=== PATIENT | female | born 1990 | race African-American/Black ===

== ENCOUNTER 2018-08-20 13:48 | Inpatient (IN) ==
[2018-08-20] MEDS ORDERED: LACTATED RINGERS 1,000 ML IV PRN (14:10)
[2018-08-20] MEDS ORDERED: ONDANSETRON 4 MG/2 ML VIAL IV PRN (14:10)
[2018-08-20] MEDS ORDERED: DINOPROSTONE 10 MG VAG.INSERT VAG ONE (14:10)
[2018-08-20] MEDS ORDERED: BUTORPHANOL 2 MG/ML VIAL IV PRN (14:10)
[2018-08-20 14:28] LABS: Basophils % 0.2 % (0.0-0.8); Eosinophils # 0.1 10*3/uL (0.0-0.87); Eosinophils % 0.5 % (0.00-10.9); Hematocrit 34.4 VOL% (35.7-47.0); Hemoglobin 10.3 GM/DL (12.0-16.0); Immature Granulocytes % 0.5 %; Immature Granulocytes Absolute 0.06 #; Lymphocytes # 1.9 10*3/uL (1.4-4.0); Lymphocytes % 16.5 % (21.3-54.2); Mean Corpuscular HGB Conc 29.9 GM/DL (32-36); Mean Corpuscular Volume 80.2 FL (87-102); Mean Platelet Volume 10.2 FL (9.6-12.0); Monocytes % 6.1 % (1.7-12.7); Neutrophils % 76.2 % (38.7-73.9); Platelet Count 172 T/CUMM (130-400); Red Blood Count 4.29 MC/CUMM (3.8-5.5); Red Cell Distribution Width 16.8 % (9.3-17.3); White Blood Count 11.2 T/CUMM (4-12)
[2018-08-20 14:53] LABS: Albumin 2.7 G/DL (3.4-5.0); Bilirubin,Total 0.4 MG/DL (0.2-1.0); Calcium 8.6 MG/DL (8.5-10.1); Osmolality,Calculated 276.5 MOS/KG (273-304); Total Protein 6.9 G/DL (6.4-8.3); Uric Acid 5.2 MG/DL (2.6-6.0)
[2018-08-21] MEDS ORDERED: OXYTOCIN/LR 20 UNIT/1,000 ML BAG IV SCH (03:00)
[2018-08-21] MEDS: LACTATED RINGERS 1,000 ML IV SCH ×2 (03:08→20:30)
[2018-08-21] MEDS ORDERED: CLINDAMYCIN INJ 900 MG in PREMIX 1 EACH IV ONE (06:23)
[2018-08-21] MEDS ORDERED: CITRIC ACID/SODIUM CITRATE 30 ML UDCUP PO ONE (06:23)
[2018-08-21] MEDS ORDERED: FAMOTIDINE 20 MG/2 ML VIAL IV ONE (06:23)
[2018-08-21] MEDS ORDERED: BUPIVACAINE SPINAL 0.75% 2 ML AMP SPINAL ONE (08:02)
[2018-08-21] MEDS ORDERED: MORPHINE 10 MG/10 ML VIAL ONE (10:06)
[2018-08-21] MEDS ORDERED: ONDANSETRON 4 MG/2 ML VIAL ONE (10:06)
[2018-08-21] MEDS ORDERED: PHENYLEPHRINE 1 MG/10 ML SYRINGE IV ONE (10:06)
[2018-08-21 10:30] LABS: Apearance,Urine CLEAR (Clear); Bacteria,Urine Occasional /HPF (Few); Bilirubin,Urine Negative (Negative); Blood, Urine Negative (Negative); Glucose,Urine (UA) Negative (Negative); Ketones,Urine 5 mg/dL (Negative); Mucus,Urine Occasional /LPF (Occasional); Nitrite,Urine Negative (Negative); Protein,Urine Negative; RBC,Urine 1 /HPF (0-4); Squamous Epithelial Cell,Urine Occasional /HPF (0-10); Urine Color Yellow (Yellow); Urine Specific Gravity 1.017 (1.001-1.035); Urine Urobilinogen < 2.0 EU/DL (0.2-1.0); WBC,Urine 1 /HPF (0-6)
[2018-08-21] MEDS ORDERED: SIMETHICONE CHEW 80 MG TABLET PO PRN (16:03)
[2018-08-21] MEDS ORDERED: RHO(D) IMMUNE GLOBULIN 300 MCG SYRINGE IM ONE (16:03)
[2018-08-21] MEDS ORDERED: ONDANSETRON 4 MG/2 ML VIAL IV PRN (16:03)
[2018-08-21] MEDS: KETOROLAC 30 MG/1 ML VIAL IV SCH ×2 (17:40→23:53)
[2018-08-21] MEDS: DOCUSATE SODIUM 100 MG CAPSULE PO SCH (21:43)
[2018-08-22 05:52] LABS: Basophils % 0.1 % (0.0-0.8); Eosinophils # 0.1 10*3/uL (0.0-0.87); Eosinophils % 0.9 % (0.00-10.9); Hematocrit 31.2 VOL% (35.7-47.0); Hemoglobin 9.4 GM/DL (12.0-16.0); Immature Granulocytes % 0.5 %; Immature Granulocytes Absolute 0.05 #; Lymphocytes # 1.8 10*3/uL (1.4-4.0); Lymphocytes % 18.6 % (21.3-54.2); Mean Corpuscular HGB Conc 30.1 GM/DL (32-36); Mean Platelet Volume 11.2 FL (9.6-12.0); Monocytes % 8.3 % (1.7-12.7); Neutrophils % 71.6 % (38.7-73.9); Platelet Count 164 T/CUMM (130-400); White Blood Count 9.7 T/CUMM (4-12)
[2018-08-22] MEDS: KETOROLAC 30 MG/1 ML VIAL IV SCH ×2 (06:23→11:18)
[2018-08-22] MEDS: MULTIVITAMIN (PRENATAL) TABLET PO SCH (08:51)
[2018-08-22] MEDS: MAGNESIUM HYDROXIDE SUSP 30 ML UDCUP PO PRN ×2 (08:53→21:55)
[2018-08-22] MEDS: DOCUSATE SODIUM 100 MG CAPSULE PO SCH ×2 (08:53→21:55)
[2018-08-22] MEDS: IBUPROFEN 800 MG TABLET PO SCH ×2 (10:52→17:39)
[2018-08-22] MEDS ORDERED: ACETAMINOPHEN 500 MG TABLET ONE (15:46)
[2018-08-22] MEDS: ACETAMINOPHEN 500 MG TABLET PO PRN (15:49)
[2018-08-23] MEDS: IBUPROFEN 800 MG TABLET PO SCH ×2 (02:08→10:17)
[2018-08-23] MEDS: ACETAMINOPHEN 500 MG TABLET PO PRN (07:41)
[2018-08-23] MEDS: MULTIVITAMIN (PRENATAL) TABLET PO SCH (08:00)
[2018-08-23] MEDS: DOCUSATE SODIUM 100 MG CAPSULE PO SCH (08:00)
[2018-08-23 08:25] VITALS: BP 132/78
[2018-08-23] MEDS: MAGNESIUM HYDROXIDE SUSP 30 ML UDCUP PO PRN (08:26)
== END 2018-08-23 13:25 | disposition home or self-care (01) | DRG 540 ==
LOC: N.LDOUT 13:48 → N.LD 13:49 → N.OB 08-21 17:16
PROVIDERS: ADMIT Obstetrics & Gynecology; ATTEND Obstetrics & Gynecology
PROC: LDCSECT (ICD-10-PCS; 2018-08-21 08:00)